=== PATIENT | female | born 1980 | race Caucasian/White ===

== ENCOUNTER 2017-08-24 23:58 | Inpatient (IN) | payer MEDICAID, OTHER ==
[~2017-08-24] VITALS: Ht 152.4 cm; Wt 81.6 kg
[2017-08-25] MEDS ORDERED: NITROGLYCERIN 0.4 MG/TAB BOTTLE SL ONE ×3 (00:34→04:15)
[2017-08-25] MEDS ORDERED: IV NORMAL SALINE 1000 ML BAG IV ONE (00:45)
[2017-08-25] MEDS ORDERED: LORAZEPAM 2 MG/1 ML VIAL IV ONE ×2 (00:45→04:15)
[2017-08-25 01:08] LABS: BASOPHILS # (AUTO) 0.1 K/uL (0.0-8.0); BASOPHILS % (AUTO) 0.6 % (0.0-2.0); EOSINOPHILS # (AUTO) 0.1 K/uL (0.0-0.7); EOSINOPHILS % (AUTO) 1.3 % (0.0-7.0); HEMATOCRIT 38.3 % (31.2-41.9); LYMPHOCYTES # (AUTO) 3.8 K/uL (20.0-40.0); LYMPHOCYTES % (AUTO) 33.3 % (20.5-51.5); MEAN CORPUSCULAR HEMOGLOBIN 29.5 uug (24.7-32.8); MEAN CORPUSCULAR HGB CONC 34 g/dL (32.3-35.6); MEAN CORPUSCULAR VOLUME 87.1 fL (75.5-95.3); MONOCYTES # (AUTO) 0.6 K/uL (2.0-10.0); MONOCYTES % (AUTO) 5.6 % (0.0-11.0); NEUTROPHILS # (AUTO) 6.7 K/uL (1.8-8.9); NEUTROPHILS % (AUTO) 59.2 % (38.5-71.5); PLATELET COUNT (AUTO) 353 K/uL (179-408); WHITE BLOOD COUNT (AUTO) 11.4 K/uL (3.8-11.8)
[2017-08-25] MEDS ORDERED: IV NORMAL SALINE 100 ML ONE (01:19)
[2017-08-25] MEDS ORDERED: IOHEXOL 350 100 ML INFUS..BTL ONE (01:19)
[2017-08-25 01:29] LABS: CARBON DIOXIDE 24 mmol/L (21-32); CHLORIDE 102 mmol/L (98-107); CREATININE 0.7 mg/dL (0.6-1.3); GLUCOSE 123 mg/dL (74-106); POTASSIUM 3.6 mmol/L (3.5-5.1); UREA NITROGEN, BLOOD 11 mg/dL (7-18)
[2017-08-25 01:46] LABS: ALANINE AMINOTRANSFERASE 39 U/L (14-59); ALKALINE PHOSPHATASE 60 U/L (50-136); ASPARTATE AMINOTRANSFERASE 19 U/L (15-37); BILIRUBIN,DIRECT < 0.1 mg/dL (0.0-0.2); BILIRUBIN,TOTAL 0.2 mg/dL (0.2-1.0); TOTAL PROTEIN, SERUM 7.1 g/dL (6.4-8.2)
[2017-08-25] MEDS ORDERED: ASPIRIN 325 MG TABLET PO ONE (03:45)
--- NOTE | 2017-08-25 03:46 | NUR ---
Ambulated to bathroom w/ stable gait
[2017-08-25] MEDS ORDERED: LORAZEPAM 2 MG/1 ML VIAL ONE (04:14)
[2017-08-25] MEDS ORDERED: ACETAMINOPHEN 325 MG TABLET PO PRN (04:15)
[2017-08-25] MEDS ORDERED: MAGNESIUM HYDROXIDE 30 ML LIQUID UDC PO PRN (04:15)
[2017-08-25] MEDS ORDERED: HYDROCODONE/APAP 5-325MG TABLET PO PRN (04:15)
[2017-08-25] MEDS ORDERED: ONDANSETRON 4 MG/2 ML VIAL IV PRN (04:15)
[2017-08-25] MEDS ORDERED: ASPIRIN 325 MG TABLET ONE (04:19)
[2017-08-25] MEDS ORDERED: ONDANSETRON ODT 4 MG TAB.RAPDIS ONE (04:19)
[2017-08-25] MEDS ORDERED: ONDANSETRON ODT 4 MG TAB.RAPDIS SL ONE (04:30)
--- NOTE | 2017-08-25 04:43 | NUR ---
Family at bedside, patient tolerated Lorazepam w/o distress. Respirations even and unlabored. No SOB or congestion noted. lung sounds clear.
--- NOTE | 2017-08-25 05:15 | NUR ---
Report given to Rachael MORAN. patient admitted to Telemetry. Dx: chest pain.
[2017-08-25 06:00] VITALS: BP 123/73
--- NOTE | 2017-08-25 06:02 | NUR ---
Pt. admitted to Telemetry , under care of Santiago ARIAS. Dx: Chest pain Belongs List completed
--- NOTE | 2017-08-25 07:00 | NUR ---
RECEIVED PATIENT ON BED ASLEEP, A AND O X 4, NEW ADMIT FROM ER AT 0600, ADMISSION ORDERS DONE, NURSING ADMISSION ASSESSMENTS TO BE COMPLETED. NO ACUTE DISTRESS NOTED. PATIENT SLEEPING COMFORTABLY.NO SOB NOTED. NO COMPLAINTS OF PAIN/DISCOMFORT. IV ACCESS ON THE LEFT FOREARM #20, INTACT AND PATENT.COMFORT MEASURES PROVIDED. WILL CONTINUE MONITOR.
[2017-08-25] MEDS: IV NS 1000 ML 1,000 ML IV PRN (08:48)
[2017-08-25] MEDS: LORAZEPAM 0.5 MG TABLET PO PRN ×2 (09:03→17:52)
[2017-08-25 11:30] VITALS: BP 121/71
[2017-08-25] MEDS ORDERED: INFLUENZA VACCINE 2017-2018 0.5 ML DISP.SYRIN IM ONE (15:00)
[2017-08-25] MEDS: MORPHINE SULFATE 4 MG/1 ML DISP.SYRIN IV PRN (15:14)
[2017-08-25 15:40] VITALS: BP 132/86
[2017-08-25 20:00] VITALS: BP 115/83
--- NOTE | 2017-08-25 20:00 | NUR ---
RECEIVED PT SITTING UP IN BED AAO X4, NOT IN ANY DISTRESS. NO C/O PAIN. WILL CONTINUE TO MONITOR. CALL LIGHT WITHIN REACH.
[2017-08-26 04:00] VITALS: BP 104/60
[2017-08-26] MEDS: IV NS 1000 ML 1,000 ML IV PRN ×2 (04:24→18:10)
[2017-08-26] MEDS: MORPHINE SULFATE 4 MG/1 ML DISP.SYRIN IV PRN (04:39)
--- NOTE | 2017-08-26 05:43 | NUR ---
No distress noted at this time. Pain management provided.
[2017-08-26 06:43] LABS: BASOPHILS % (AUTO) 0.5 % (0.0-2.0); EOSINOPHILS # (AUTO) 0.2 K/uL (0.0-0.7); EOSINOPHILS % (AUTO) 2.2 % (0.0-7.0); HEMATOCRIT 37.6 % (31.2-41.9); HEMOGLOBIN 12.7 g/dL (10.9-14.3); LYMPHOCYTES # (AUTO) 2.2 K/uL (20.0-40.0); MEAN CORPUSCULAR HEMOGLOBIN 29.6 uug (24.7-32.8); MEAN CORPUSCULAR HGB CONC 34 g/dL (32.3-35.6); MEAN CORPUSCULAR VOLUME 87.5 fL (75.5-95.3); MONOCYTES # (AUTO) 0.5 K/uL (2.0-10.0); NEUTROPHILS # (AUTO) 5.8 K/uL (1.8-8.9); NEUTROPHILS % (AUTO) 66.3 % (38.5-71.5); PLATELET COUNT (AUTO) 306 K/uL (179-408); WHITE BLOOD COUNT (AUTO) 8.7 K/uL (3.8-11.8)
[2017-08-26 06:46] LABS: CREATININE 0.7 mg/dL (0.6-1.3); POTASSIUM 3.7 mmol/L (3.5-5.1)
--- NOTE | 2017-08-26 08:00 | NUR ---
RECEIVED PATIENT IN BED INITIALLY ASLEEP THEN SHE WAKES UP ALERT ORIENTED AND VERBALLY RESPONSIVE PATIENT STATED THAT SHE FEELS LIKE SHE NEEDS A PSYCHOLOGIST BECAUSE SHE STATED SHE DOES NOT FEEL LIKE HERSELF SO WILL NOTIFY THE MD.REMAIN ON IVF ORDERED WITH NO S/S OF INFILTERATION ON SITE.TOLERATED DIET ORDERED NOT IN DISTRESS AT THIS TIME.
[2017-08-26] MEDS: ASPIRIN 81 MG TAB.CHEW PO SCH (08:31)
[2017-08-26 11:47] VITALS: BP 117/62
[2017-08-26] MEDS: LORAZEPAM 0.5 MG TABLET PO PRN (13:09)
--- NOTE | 2017-08-26 13:10 | NUR ---
PATIENT STATED FEELS ANXIOUS MEDICATED WITH ATIVAN ORDERED.
--- NOTE | 2017-08-26 13:45 | NUR ---
ORDER FOR PHYSICIAN CONSULT RECEIVED AND NOTED [facility] CALLED BY THE MAT CUTTER AND MESSAGE LEFT FOR DR BURDEN TO SEE PATIENT TODAY.
[2017-08-26 15:57] VITALS: BP 121/70
--- NOTE | 2017-08-26 18:41 | NUR ---
RESTING WELL IN HER BED WITH NO DISTRESS AT THIS WANTS TO KNOW WHEN SHE WILL BE SEEN BY THE PSYCHIATRIST AND I INFORMED HER THAT IT WILL BE MOST LIKELY TONITE.
[2017-08-26 20:00] VITALS: BP 119/65
--- NOTE | 2017-08-26 20:00 | NUR ---
a/A /o times four states is under alot of stress at work. Awaiting for the Psychiatrist.
[2017-08-26] MEDS ORDERED: VENLAFAXINE XR 37.5 MG CAP.SR.24H PO ONE (22:30)
[2017-08-26] MEDS ORDERED: CLONAZEPAM 0.5 MG TABLET PO ONE (22:30)
[2017-08-27 04:00] VITALS: BP 96/56
--- NOTE | 2017-08-27 06:00 | NUR ---
Finally went to sleep after 1am, no distress noted or voiced
--- NOTE | 2017-08-27 07:45 | NUR ---
RECEIVED PATIENT AWAKE ALERT AND ORIENTED STATED THAT SHE FEELS VERY DEPRESSED AND WANTED TO KNOW IT SHE COULD SEE A PSYCHOTHERAPIST STATED DID SEE A PSYCHIATRIST LAST NITE BUT DOES NOT FEEL THAT HE ADDRESSED HER PROBLEM.INFORMED HER THAT I WILL INFORM DR MAK.
[2017-08-27] MEDS: ASPIRIN 81 MG TAB.CHEW PO SCH (08:40)
[2017-08-27] MEDS: IV NS 1000 ML 1,000 ML IV PRN (08:40)
[2017-08-27] MEDS ORDERED: VENLAFAXINE XR 37.5 MG CAP.SR.24H PO SCH (09:00)
[2017-08-27] MEDS ORDERED: CLONAZEPAM 0.5 MG TABLET PO SCH (09:00)
--- NOTE | 2017-08-27 09:51 | NUR ---
PATIENT REFUSED HER KLONOPIN AND EFFEXOR ORDERED STATED THAT SHE RATHER NOT TAKE THEM AT THIS TIME WANTS ALSO FOR ME TO DISCONNECT HER IV FLUIDS FOR A WHILE STATED THAT SHE DOES NOT NEED IT BECAUSE SHE FEELS THAT SHE IS DRINKING ENOUGH FLUIDS AT THIS TIME.
[2017-08-27 11:17] VITALS: BP 118/63
[2017-08-27] MEDS: LORAZEPAM 0.5 MG TABLET PO PRN (11:47)
--- NOTE | 2017-08-27 11:47 | NUR ---
PATIENT STATED FEELS ANXIOUS REQUESTED FOR ANTI ANXIETY MEDICATION PATIENTS FATHER DELMIS IS AT THE BEDSIDE AND STATED THAT IF PATIENT IS DISCHARGED HE WILL BE THE ONE TO DRIVE HER HOME.PATIENT REASSURED AND MADE COMFORTABLE.
[2017-08-27] MEDS ORDERED: VENL37.55 PO (13:55)
[2017-08-27] MEDS ORDERED: ATOR10TA PO (14:06)
--- NOTE | 2017-08-27 14:08 | NUR ---
DISCHARGE ORDER NOTED FROM DR MAK AT THIS TIME.
--- NOTE | 2017-08-27 15:00 | NUR ---
DISCHARGE INSTRUCTIONS AND PRESCRIPTIONS GIVEN TO PATIENT EVEN THOUGH HER MEDICATIONS WAS CALLED INTO [facility] PER HER REQUEST.PATIENT WAS INSTRUCTED TO CALL HER PRIMARY DOCTOR AND HER INSURANCE FOR A REFERRAL TO A PSYCHIATRIST AND OR A PSYCHOTHERAPIST WITHIN THE NEXT ONE TO TWO WEEKS AND SHE EXPRESSED UNDERSTANDING PATIENT STATED WAITING FOR HER SISTER WILLIAM TO PICK HER UP AND THAT SHE IS ON THE WAY AT THIS TIME
--- NOTE | 2017-08-27 16:40 | NUR ---
PATIENT DISCHARGED PICKED UP BY HER SISTER WILLIAM IN SATISFACTORY CONDITION WITH ALL HER DISCHARGE INSTRUCTIONS AND ALL HER PERSONAL BELONGINGS.
== END 2017-08-27 16:40 | disposition home or self-care (01) | DRG 153 ==
LOC: ER 08-25 00:02 → TELE 08-25 05:36 → MED 08-25 17:00
PROVIDERS: ADMIT Nurse Practitioner Acute Care; ATTEND Internal Medicine
DX: J06.9 Acute upper respiratory infection, unspecified (principal); E66.9 Obesity, unspecified; E78.5 Hyperlipidemia, unspecified; R09.1 Pleurisy; F41.0 Panic disorder [episodic paroxysmal anxiety]; Z82.49 Family history of ischemic heart disease and other diseases of the circulatory system; Z68.35 Body mass index [BMI] 35.0-35.9, adult; Z79.899 Other long term (current) drug therapy; F32.9 Major depressive disorder, single episode, unspecified
CPT/HCPCS: 36415; 70030-TC; 71045; 71275; 83735; 84703; 85025; 85730; 90686; 93005; A4663; J2060; J2270; J3490; J7030; Q0162; Q9967

== ENCOUNTER 2018-03-25 14:55 | Emergency (ER) | payer MEDICAID, OTHER ==
[~2018-03-25] VITALS: Ht 160 cm; Wt 103.0 kg
[~2018-03-25 14:55] MED LIST: ATOR10TA PO; VENL37.55 PO
[2018-03-25] MEDS ORDERED: SULFAMETH/TRIMETH 800/160 MG TABLET ONE (15:24)
--- NOTE | 2018-03-25 15:29 | NUR ---
Patient discharged to home in stable conditon. Written and verbal after care instructions given. Patient verbalizes understanding of instructions.
[2018-03-25] MEDS ORDERED: SULFAMETH/TRIMETH 800/160 MG TABLET PO ONE (15:30)
== END 2018-03-25 15:29 | disposition home or self-care (01) ==
LOC: ER 14:55
DX: L02.211 Cutaneous abscess of abdominal wall (principal)
CPT/HCPCS: A4663